=== PATIENT | male | born 1970 | race Caucasian/White ===

== ENCOUNTER 2023-01-17 14:14 | Emergency (ER) | payer BC, SELFPAY ==
[2023-01-17 14:47] VITALS: BP 113/82; PULSE 80; RESP 17; TEMP 36.6; O2SAT 95; BMI 34.7
--- NOTE | 2023-01-17 15:13 | XRR_ITS ---
PROCEDURE INFORMATION: Exam: XR Left Hand Exam date and time: 01/17/2023 4:29 PM Age: 52 years old Clinical indication: Injury or trauma; Other: Knife injury to middle finger; Laceration; Left TECHNIQUE: Imaging protocol: Radiologic exam of the left hand. Views: 3 or more views. COMPARISON: No relevant prior studies available. FINDINGS: Bones/joints: Normal. Soft tissues: Approximately 2 mm linear opacity in the anterolateral soft tissues of the middle phalanx of the middle finger . XR/XR hand LT min 3V* [id number] IMPRESSION: Approximately 2 mm linear opacity in the anterolateral soft tissues of the middle phalanx of the middle finger . No acute osseous or joint abnormality.
--- NOTE | 2023-01-17 16:39 | W.ED.WOUNDLC ---
HPI - Wound/Laceration General: Chief Complaint: Wound/Laceration Stated Complaint: Left Middle Finger injury Time Seen by Provider: 01/17/23 16:21 History of Present Illness: Patient is a 52-year-old male comes to the ED with left middle finger injury. Injury occurred just prior to arrival. Patient was cutting open container with a knife and it slipped and punctured left middle finger. Knife blade created and entry and exit wound laceration. He was having trouble controlling the bleeding so he went to a clinic down in [facility] and they referred him here to the ED. Patient says pain is very minimal. He denies any numbness tingling in his fingers and has full range of motion of the finger. Patient is up-to-date on his tetanus. Associated symptoms: Denies chills, fever(s), nausea or vomiting Review of Systems Const: Denies: fever(s), chills or fatigue Eyes: Denies: change in vision or eye discomfort ENMT: Denies: throat pain, odynophagia, nasal discharge or nasal congestion Card: Denies: chest pain, palpitations, edema, swelling of feet/ankles, dyspnea on exertion or orthopnea Resp: Denies: dyspnea, productive cough or non-productive cough GI: Denies: abdominal pain, nausea, vomiting, diarrhea, constipation or hematochezia : Denies: flank pain, difficulty urinating, dysuria or hematuria Musc: Denies: neck pain, back pain or extremity swelling Skin/Breast: Reports: new lesions (Laceration of left middle finger); Denies: rash Neuro: Denies: headache(s), numbness in extremities or weakness in extremities [facility] ED PFSH: Medical History (Updated 01/17/23 @ 17:09 by HO Valentine) No pertinent family history Surgical History (Updated 01/17/23 @ 16:48 by HO Valentine) No pertinent past surgical history Physical Exam Const: COMMON NORMALS: no acute distress, patient oriented x3, healthy appearing and alert HENMT: COMMON NORMALS: normocephalic HEAD & SCALP: normocephalic MOUTH: Normal oral and palatal mucosa present THROAT: posterior oropharynx normal and uvula midline Neck/C-Spine: COMMON NORMALS: supple GENERAL: Yes normal visual inspection Resp: COMMON NORMALS: normal respiratory effort, No retractions, No use of accessory muscles and clear to auscultation bilaterally AUSCULTATION: clear to auscultation bilaterally Cardio: COMMON NORMALS: regular rate, regular rhythm, S1 normal heart sound present, S2 normal heart sound present, No gallops present (Cardio), No clicks present (Cardio), No murmurs present (Cardio) and Peripheral pulses 2+ throughout RATE: regular rate RHYTHM: regular rhythm HEART SOUNDS: S1 normal heart sound present and S2 normal heart sound present PERIPHERAL PULSES: Peripheral pulses 2+ throughout GI: COMMON NORMALS: Normal to inspection, nondistended, normoactive bowel sounds present, Soft to palpation, non-tender and no masses PALPATION: Yes Soft to palpation : COMMON NORMALS: Yes no CVA tenderness BLADDER/KIDNEY EXAM: Yes no CVA tenderness Back/Pelvis: COMMON NORMALS: no CVA tenderness Extremity: NARRATIVE EXTREMITY EXAM: Left hand?middle finger. Patient has 2 linear laceration around the middle phalanx of finger. 1 laceration is linear 2 cm in length and the second laceration is linear 1 cm in length. no joint involvement noted. No nailbed or nail damage seen. No active bleeding. Patient has full range of motion of extension and flexion of finger. No concern for tendon laceration at this time. Neuro: COMMON NORMALS: patient oriented x3 SENSORIUM/ORIENTATION: Yes alert GAIT: Yes Normal gait present Skin: GENERAL SKIN EXAM: dry skin Procedures Laceration Laceration 1: Site: hand (left hand middle finger) Side (If applicable): left Size (cm): 1 Description: linear Depth: simple, single layer Local Anesthetic: lidocaine 1% Amount of anesthesia used (mL): 2 Pre-repair: irrigated extensively (With normal saline) Skin layer closed with: nylon Size (cm): 4-0 Number of sutures: 2 Technique: simple, interrupted Laceration 2: Site: hand (middle finger) Side (If applicable): left Size (cm): 2 Description: linear Depth: simple, single layer Local Anesthetic: lidocaine 1% Amount of anesthesia used (mL): 3 Pre-repair: irrigated extensively (With normal saline) Skin layer closed with: nylon Size (cm): 4-0 Number of sutures: 3 Technique: simple, interrupted Course Vital Signs: Vital signs: Vital Signs Temperature 97.9 F 01/17/23 14:47 Pulse Rate 80 01/17/23 14:47 Respiratory Rate 17 01/17/23 14:47 Blood Pressure 131/81 01/17/23 17:40 Pulse Oximetry 95 01/17/23 14:47 MDM - Wound/Laceration Medical Decision Making Patient is a 52-year-old male comes to the ED with left middle finger injury. Injury occurred just prior to arrival. Patient was cutting open container with a knife and it slipped and punctured left middle finger. Knife blade created and entry and exit wound laceration. He was having trouble controlling the bleeding so he went to a clinic down in [facility] and they referred him here to the ED. Patient says pain is very minimal. He denies any numbness tingling in his fingers and has full range of motion of the finger. Patient is up-to-date on his tetanus. Vitals are stable. Left hand?middle finger. Patient has 2 linear laceration around the middle phalanx of finger. 1 laceration is linear 2 cm in length and the second laceration is linear 1 cm in length. no joint involvement noted. No nailbed or nail damage seen. No active bleeding. Patient has full range of motion of extension and flexion of finger. Full strength with extension and flexion of finger. No concern for tendon laceration at this time. X-ray of hand showed no acute fractures. Laceration was irrigated extensively with normal saline. Lidocaine 1% was used as local. The 2 lacerations were closed using a total of 5 sutures. Patient was diagnosed with finger laceration and it was discharged home with a prescription for Keflex. Return to ED precautions given. Patient was instructed on how to care for wound and to have sutures removed in about 10 days. Patient understood and agreed with plan. Lab Data Radiology Impressions Hand X-Ray 01/17/23 15:13 IMPRESSION: Approximately 2 mm linear opacity in the anterolateral soft tissues of the middle phalanx of the middle finger . No acute osseous or joint abnormality. Discharge Plan Discharge Patient Disposition: Home Clinical Impression: Finger laceration Qualifiers: Encounter type: initial encounter Finger: middle finger Damage to nail status: without damage Foreign body presence: without foreign body Laterality: left Qualified Code(s): S61.213A - Laceration without foreign body of left middle finger without damage to nail, initial encounter Condition: Stable Prescriptions: New cephalexin 500 mg capsule 500 mg PO Q6H 7 Days Qty: 28 0RF Discharge Orders: Discharge ED (Routine); Ordered 01/17/23 Ordered By: Enmanuel Jung Discharge Diet: Regular Discharge Activity: Limit activity as instructed Patient Instructions: Laceration (DC) Activity Restrictions/Additional Instructions: Take full course of antibiotics as prescribed. Keep laceration site clean and bandaged. Clean daily with soap and water and then apply thin layer of triple antibiotic ointment on it and cover with bandage. Do not submerge finger in any bodies of water such as lakes or [place] until it is healed. Watch for signs of infection such as redness, warmth, increased tenderness and puslike drainage. If you see the signs of infection return to the ED, urgent care or PCP for reevaluation. call your PCP to schedule a follow-up appointment for reevaluation and suture removal in about 10 days. Continue taking all home meds. Follow discharge plans as discussed. You can return to the ED if symptoms worsen. Coding Level of Care Code ED Furniture Technician for Gloria Aguirre
[2023-01-17 16:55] VITALS: BP 148/96
[2023-01-17 17:40] VITALS: BP 131/81
== END 2023-01-17 17:43 | disposition home or self-care (01) ==
PROVIDERS: Emergency Provider Physician Assistant
DX: S61.213A Laceration without foreign body of left middle finger without damage to nail, initial encounter (principal); W26.0XXA Contact with knife, initial encounter
CPT/HCPCS: 12002; 73130; 99283